=== PATIENT | male | born 1960 | race Caucasian/White ===

== ENCOUNTER 2017-11-24 10:55 | Emergency (ER) | payer MEDICARE, OTHER ==
[2017-11-24] MEDS: HYDROCODONE/APAP (10/325) TAB PO (11:33)
== END 2017-11-24 12:40 | disposition home or self-care (01) ==
LOC: E/R 10:55
DX: M79.604 Pain in right leg (principal); I10 Essential (primary) hypertension; J44.9 Chronic obstructive pulmonary disease, unspecified
CPT/HCPCS: 99283

== ENCOUNTER 2018-03-04 19:39 | Emergency (ER) | payer MEDICARE, OTHER ==
[2018-03-04] MEDS: HYDROCODONE/APAP (5/325) TAB PO (22:13)
== END 2018-03-04 22:25 | disposition home or self-care (01) ==
LOC: FTE 19:39
DX: M79.602 Pain in left arm (principal); I10 Essential (primary) hypertension; J44.9 Chronic obstructive pulmonary disease, unspecified; E66.01 Morbid (severe) obesity due to excess calories; F17.210 Nicotine dependence, cigarettes, uncomplicated; Z68.34 Body mass index [BMI] 34.0-34.9, adult
CPT/HCPCS: 99283

== ENCOUNTER 2018-10-01 00:10 | Emergency (ER) | payer MEDICARE, OTHER ==
[2018-10-01] MEDS: KETOROLAC 60 MG INJ IM (01:11)
[2018-10-01] MEDS: DIAZEPAM 5 MG/ML SYG IM (01:12)
== END 2018-10-01 03:54 | disposition home or self-care (01) ==
LOC: E/R 00:10
DX: M54.5 Low back pain (principal); I10 Essential (primary) hypertension; J44.9 Chronic obstructive pulmonary disease, unspecified; F17.210 Nicotine dependence, cigarettes, uncomplicated; E66.01 Morbid (severe) obesity due to excess calories; Z68.38 Body mass index [BMI] 38.0-38.9, adult
CPT/HCPCS: 72100; 96372; 99284-25